=== PATIENT | female | born 1935 | race Caucasian/White ===

== ENCOUNTER 2017-12-07 15:44 | Observation (INO) | payer MEDICARE ==
[2017-12-07 16:34] LABS: ADD MAN DIFF? NO
[2017-12-07 16:36] LABS: WHITE BLOOD COUNT 9.8 10^3/ul (4.8-10.8)
[2017-12-07 16:36] LABS: BASOPHIL # 0.1 10^3/ul (0.0-0.1); BASOPHILS % 0.8 % (0.0-2.0); EOSINOPHILS % 0.3 % (0.0-7.0); HEMATOCRIT 43.4 % (37.0-47.0); HEMOGLOBIN 14.5 g/dl (12.0-16.0); LYMPHOCYTES # 1.2 10^3/ul (0.8-2.9); LYMPHOCYTES % 12.4 % (15.0-51.0); MEAN CORPUSCULAR HEMOGLOBIN 29.2 pg (29.0-33.0); MEAN CORPUSCULAR HGB CONC 33.4 g/dl (32.0-37.0); MEAN CORPUSCULAR VOLUME 87.5 fl (82.0-101.0); MEAN PLATELET VOLUME 12.6 fl (7.4-10.4); MONOCYTE # 0.6 10^3/ul (0.3-0.9); MONOCYTES % 5.8 % (0.0-11.0); NEUTROPHIL # 7.9 10^3/ul (1.6-7.5); NEUTROPHILS % 80.3 % (39.0-77.0); PLATELET COUNT 317 10^3/UL (140-415); RED BLOOD COUNT 4.96 10^6/ul (4.20-5.40); RED CELL DISTRIBUTION WIDTH 17.6 % (11.5-14.5)
[2017-12-07 17:06] LABS: ANION GAP 20 (8-16); BLOOD UREA NITROGEN 19 mg/dl (7-20); CALCIUM 8.9 mg/dl (8.4-10.2); CARBON DIOXIDE 21 mmol/L (21-31); CHLORIDE 98 mmol/L (97-110); CREATININE 0.92 mg/dl (0.44-1.00); GLUCOSE 195 mg/dl (70-220); POTASSIUM 3.2 mmol/L (3.5-5.1); SODIUM 136 mmol/L (135-144)
[2017-12-07 17:17] LABS: TROPONIN-I 0.033 ng/ml (0.000-0.120)
[2017-12-07] MEDS: KETOROLAC 15 MG INJ IV (18:38)
[2017-12-07 18:41] LABS: INR 2.19; PROTIME 24.9 Sec (11.9-14.9); PT RATIO 1.9
[2017-12-07] MEDS ORDERED: ONDANSETRON 4 MG INJ IV ×2 (19:00→19:30)
[2017-12-07] MEDS ORDERED: HYDROCODONE/APAP (5/325) TAB PO (19:00)
[2017-12-07] MEDS ORDERED: ACETAMINOPHEN 325 MG TAB PO (19:30)
[2017-12-07] MEDS ORDERED: GLUCOSE GEL 15 GRAM TUBE BUCCAL (23:00)
[2017-12-07] MEDS ORDERED: DEXTROSE 50% 50 ML SYRINGE IV ×2 (23:00)
[2017-12-07] MEDS ORDERED: GLUCOSE GEL 15 GRAM TUBE PO ×2 (23:00)
[2017-12-07] MEDS ORDERED: GLUCAGON 1 MG INJ IM (23:00)
[2017-12-08] MEDS ORDERED: MINERAL OIL 133 ML ENEMA PR (01:30)
[2017-12-08] MEDS: METHOCARBAMOL 500 MG TAB PO ×2 (01:30→12:59)
[2017-12-08] MEDS: BISACODYL 10 MG SUPP PR (01:30)
[2017-12-08] MEDS ORDERED: SENNA TAB PO (01:30)
[2017-12-08] MEDS ORDERED: DILTIAZEM 30 MG TAB PO (01:30)
[2017-12-08] MEDS: TRAVOPROST 0.004% 2.5 ML OPH RIGHT EYE (01:30)
[2017-12-08] MEDS: ACCU-CHEK XX (02:00)
[2017-12-08] MEDS: ALBUTEROL/IPRATROPIUM (NEB) 3 ML AMP HHN ×5 (05:00→21:30)
[2017-12-08] MEDS: FUROSEMIDE 20 MG TAB PO (05:19)
[2017-12-08] MEDS: PANTOPRAZOLE (EC) 40 MG TAB PO (05:23)
[2017-12-08] MEDS: INSULIN ASPART [NOVOLOG] 3 ML PEN SC ×4 (07:50→21:00)
[2017-12-08] MEDS ORDERED: NON-FORMULARY/PATIENT OWN MED (Brinzolamide-Brimonidine (Simbrinza 1%-0.2% Oph) 1 DROP) LEFT EYE (09:00)
[2017-12-08] MEDS: LEVOTHYROXINE 25 MCG TAB PO (09:08)
[2017-12-08] MEDS: LEVOTHYROXINE 112 MCG TAB PO (09:09)
[2017-12-08] MEDS: METOPROLOL (XL) 25 MG TAB PO (09:10)
[2017-12-08] MEDS: traMADol 50 MG TAB PO ×2 (09:11→16:57)
[2017-12-08] MEDS: POTASSIUM CHLORIDE (SR) 20 MEQ TAB PO (15:13)
[2017-12-08] MEDS: WARFARIN 1 MG TAB PO (16:58)
[2017-12-08] MEDS: LATANOPROST 0.005% 2.5 ML OPH RIGHT EYE (21:00)
[2017-12-08] MEDS: INSULIN GLARGINE [LANtus] 3 ML PEN SC (21:00)
[2017-12-08] MEDS: MIRTAZAPINE 15 MG TAB PO (21:00)
[2017-12-09] MEDS: ALBUTEROL/IPRATROPIUM (NEB) 3 ML AMP HHN ×5 (01:00→17:00)
[2017-12-09] MEDS: ACCU-CHEK XX (01:10)
[2017-12-09] MEDS: METHOCARBAMOL 500 MG TAB PO ×2 (01:13→14:15)
[2017-12-09] MEDS: FUROSEMIDE 20 MG TAB PO (06:00)
[2017-12-09 06:08] LABS: ANION GAP 10 (8-16); BLOOD UREA NITROGEN 21 mg/dl (7-20); CALCIUM 8.3 mg/dl (8.4-10.2); CARBON DIOXIDE 30 mmol/L (21-31); CHLORIDE 101 mmol/L (97-110); CREATININE 0.73 mg/dl (0.44-1.00); GLUCOSE 100 mg/dl (70-220); POTASSIUM 3.2 mmol/L (3.5-5.1); SODIUM 138 mmol/L (135-144)
[2017-12-09] MEDS: LEVOTHYROXINE 25 MCG TAB PO (06:24)
[2017-12-09] MEDS: PANTOPRAZOLE (EC) 40 MG TAB PO (06:24)
[2017-12-09] MEDS: LEVOTHYROXINE 112 MCG TAB PO (06:24)
[2017-12-09] MEDS: INSULIN ASPART [NOVOLOG] 3 ML PEN SC ×2 (07:50→11:40)
[2017-12-09] MEDS: METOPROLOL (XL) 25 MG TAB PO (09:00)
[2017-12-09 11:28] LABS: MAGNESIUM 1.7 mg/dl (1.7-2.5)
[2017-12-09] MEDS: IBUPROFEN 400 MG TAB PO (12:26)
[2017-12-09] MEDS: POTASSIUM CHLORIDE (SR) 20 MEQ TAB PO (12:26)
[2017-12-09] MEDS: traMADol 50 MG TAB PO (14:15)
[2017-12-09] MEDS: BRIMONIDINE 0.2% 5 ML BTL LEFT EYE (16:13)
[2017-12-09] MEDS: BRINZOLAMIDE 1% 10ML OPH LEFT EYE (16:14)
[2017-12-09] MEDS: WARFARIN 1 MG TAB PO (17:31)
== END 2017-12-09 17:30 ==
LOC: E/R 15:44 → MS1 19:08
DX: S32.2XXA Fracture of coccyx, initial encounter for closed fracture (principal); M25.552 Pain in left hip; M47.816 Spondylosis without myelopathy or radiculopathy, lumbar region; G89.29 Other chronic pain; M54.9 Dorsalgia, unspecified; I10 Essential (primary) hypertension; J44.9 Chronic obstructive pulmonary disease, unspecified; I48.0 Paroxysmal atrial fibrillation; E11.9 Type 2 diabetes mellitus without complications; K21.9 Gastro-esophageal reflux disease without esophagitis; Z79.01 Long term (current) use of anticoagulants; Z88.6 Allergy status to analgesic agent; Z88.4 Allergy status to anesthetic agent; Z88.0 Allergy status to penicillin; Z95.0 Presence of cardiac pacemaker; W19.XXXA Unspecified fall, initial encounter
CPT/HCPCS: 72100; 72131; 72220; 73510; 80048; 82962; 83735; 84484; 85025; 85610; 93005; 93971; 94640; 94664; 96374; 97163; 99285-25